=== PATIENT | female | born 1935 | race Caucasian/White ===

== ENCOUNTER 2016-11-21 12:13 | Inpatient (IN) | payer MEDICARE ==
[~2016-11-21] VITALS: Ht 149.9 cm; Wt 59.7 kg
[2016-11-21] MEDS ORDERED: MAGN400T5 PO (12:32)
[2016-11-21] MEDS ORDERED: NIFE60TA6 PO (12:32)
[2016-11-21] MEDS ORDERED: OCUVCAP2 PO (12:32)
[2016-11-21] MEDS ORDERED: CHLO125TA (12:32)
[2016-11-21] MEDS ORDERED: ASPI81TA85 PO (12:32)
[2016-11-21] MEDS ORDERED: PRESCAP6 PO (12:32)
[2016-11-21] MEDS ORDERED: LISI40TAB PO (12:32)
[2016-11-21] MEDS ORDERED: METO1TAB7 PO (12:32)
[2016-11-21] MEDS ORDERED: CALC1TAB21 PO (12:32)
[2016-11-21] MEDS ORDERED: NAPR250T4 PO (12:32)
[2016-11-21] MEDS ORDERED: PRAV10TA4 PO (12:32)
[2016-11-21] MEDS ORDERED: PIRO10CA2 PO (12:32)
[2016-11-21] MEDS ORDERED: VITA200016 PO (12:32)
[2016-11-21] MEDS ORDERED: NS 500 ML IV ONE (12:45)
[2016-11-21] MEDS ORDERED: ASPIRIN 81 MG CHEW TABLET PO ONE (12:45)
[2016-11-21 12:56] LABS: BASO # 0.1 K/mm3 (0.0-0.2); BASO % 0.4 % (0.0-1.0); EOS % 0.1 % (0.0-3.0); LARGE UNSTAINED CELL # 0.1 K/mm3 (0.0-0.4); LARGE UNSTAINED CELL % 0.5 % (0.0-4.0); LYMPH # 1.2 K/mm3 (1.5-4.5); LYMPH % 6.6 % (24.0-44.0); MEAN CORPUSCULAR HEMOGLOBIN 30.8 pg (27.0-33.0); MEAN CORPUSCULAR VOLUME 90.4 fl (80.0-96.0); MONO # 0.6 K/mm3 (0.0-0.8); MONO % 3.6 % (0.0-5.0); NEUTROPHILS # 15.4 K/mm3 (1.8-7.7); NEUTROPHILS % 88.9 % (36.0-66.0); PLATELET COUNT, AUTOMATED 302 k/mm3 (150-450); RED CELL DISTRIBUTION WIDTH 13.6 % (11.5-14.5); WHITE BLOOD COUNT 17.3 K/mm3 (4.0-10.0)
[2016-11-21 13:02] LABS: ALBUMIN 3.9 GM/DL (3.2-5.2); ALBUMIN/GLOBULIN RATIO 1.15 (1.00-1.93); ALKALINE PHOSPHATASE 53 U/L (45-117); ALT/SGPT 18 U/L (12-78); ANION GAP 14 MEQ/L (8-16); AST/SGOT 11 U/L (15-37); BILIRUBIN,DIRECT 0.2 MG/DL (0.0-0.2); BILIRUBIN,TOTAL 1.2 MG/DL (0.2-1.0); BLOOD UREA NITROGEN 15 MG/DL (7-18); CALCIUM LEVEL 8.9 MG/DL (8.8-10.2); CARBON DIOXIDE LEVEL 23 MEQ/L (21-32); CHLORIDE LEVEL 89 MEQ/L (98-107); CREATININE FOR GFR 1.12 MG/DL (0.55-1.02); GLOMERULAR FILTRATION RATE 49.8 (>32); GLUCOSE, FASTING 190 MG/DL (83-110); SODIUM LEVEL 126 MEQ/L (136-145); TOTAL PROTEIN 7.3 GM/DL (6.4-8.2)
[2016-11-21 13:19] LABS: POTASSIUM SERUM 2.8 MEQ/L (3.5-5.1)
[2016-11-21] MEDS ORDERED: POTASSIUM CHLORIDE 10 MEQ SR TABLET PO ONE ×2 (14:45→19:30)
--- NOTE | 2016-11-21 14:51 | REP ---
CHEST, TWO VIEWS: No comparison. There is no evidence of acute infiltrate. No pleural effusion is seen. The heart is normal in size. The mediastinal silhouette is unremarkable. The visualized osseous structures are intact. There is mild biapical pleural thickening. There is mild calcification of the thoracic aorta. IMPRESSION: No acute pulmonary disease. Signed by Darren Pfeiffer MD 11/21/2016 03:23 P
--- NOTE | 2016-11-21 14:59 | REP ---
RIGHT UPPER QUADRANT ULTRASOUND: Real-time sonographic evaluation of the right upper quadrant performed. There appears to be a 6 mm polyp in the gallbladder without evidence of gallstones, gallbladder wall thickening or pericholecystic fluid. There is no intrahepatic biliary dilatation. Common bile duct is prominent in diameter at 8 mm. Liver and pancreas demonstrate homogeneous echotexture with no gross mass, pancreas is not well seen due to overlying bowel gas. Right kidney demonstrates no hydronephrosis or nephrolithiasis with normal size at 12.2 cm in length. There is a cyst in the lower pole of the right kidney 1.9 x 1.7 x 2.6 cm. IMPRESSION: There appears to be a 6 mm polyp in the gallbladder without gallstones, gallbladder wall thickening or pericholecystic fluid. Slight dilatation common bile duct at 8 mm. Signed by Darren Pfeiffer MD 11/21/2016 03:24 P
[2016-11-21] MEDS ORDERED: GASTROGRAFIN SOLUTION 30ML (Q9963) As Ordered ONE (15:05)
[2016-11-21 15:12] LABS: BASO # 0.1 K/mm3 (0.0-0.2); BASO % 0.4 % (0.0-1.0); EOS # 0.1 K/mm3 (0.0-0.50); EOS % 0.4 % (0.0-3.0); LARGE UNSTAINED CELL # 0.2 K/mm3 (0.0-0.4); LYMPH # 2.1 K/mm3 (1.5-4.5); LYMPH % 10.7 % (24.0-44.0); MEAN CORPUSCULAR HGB CONC 34.7 g/dl (32.0-36.5); MEAN CORPUSCULAR VOLUME 89.4 fl (80.0-96.0); MONO % 5.5 % (0.0-5.0); NEUTROPHILS # 14.8 K/mm3 (1.8-7.7); PLATELET COUNT, AUTOMATED 264 k/mm3 (150-450); RED CELL DISTRIBUTION WIDTH 13.5 % (11.5-14.5)
[2016-11-21] MEDS ORDERED: GASTROGRAFIN SOLUTION 30ML (Q9963) PO ONE ×2 (15:30)
[2016-11-21] MEDS ORDERED: ISOVUE-370 76% 100ML VIAL (Q9967) As Ordered ONE (16:06)
[2016-11-21] MEDS ORDERED: CHLO25TA PO (18:07)
[2016-11-21] MEDS ORDERED: PRAV40TA2 PO (18:07)
[2016-11-21] MEDS ORDERED: ONDANSETRON 4MG/2ML VIAL (J2405) IV PRN (18:15)
[2016-11-21] MEDS ORDERED: ACETAMINOPHEN TAB 650MG DOSE (2X325MG) PO PRN (18:15)
[2016-11-21] MEDS ORDERED: cefTRIAXone SOD 2 GM in D5W MINI-BAG PLUS 50 ML IV ONE (18:15)
[2016-11-21] MEDS ORDERED: AZITHROMYCIN INJ 500 MG, VIAL MATE ADAPTER 1 EACH in D5W 250 ML IV ONE (18:15)
[2016-11-21] MEDS ORDERED: SODIUM CHLORIDE 0.9% 1000 ML IV SCH (18:30)
--- NOTE | 2016-11-21 20:09 | ECGEPIP ---
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
--- NOTE | 2016-11-21 20:11 | ECGEPIP ---
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
[2016-11-21 20:25] VITALS: BP 135/70
--- NOTE | 2016-11-21 20:32 | HPEPDOC ---
Medical History and Physical Date of Admission Nov 21, 2016 at 18:03 History and Physical ATTENDING: Woodrow Ochoa MD CHIEF COMPLAINT: [chills/fevers/joint pain ] HISTORY OF PRESENT ILLNESS: [81 yo F with hx of HTN, HLD, presents with fevers/ chills/joint pain since last night she states last night she started to have chills and sweats, along with nausea, no vomiting, she denies diarrhea, no constipation, no cough, she does report urinary frequency however no dysuria, no recent travel or sick contacts, no tick bites or bug bites, in the ED was noted to have elevated WBC 18, along with hypokalemia and hyponatremia. ] PAST MEDICAL HISTORY: HTN, HLD PAST SURGICAL HISTORY: denies SOCIAL HISTORY: denies x3 FAMILY HISTORY: unremarkable ALLERGIES: Please see below. REVIEW OF SYSTEMS: All 10 systems negative except for mentioned in HPI HOME MEDICATIONS: Please see below. PHYSICAL EXAMINATION: VITAL SIGNS: Vital Sign - Last 24 Hours 11/21/16 11/21/16 11/21/16 11/21/16 12:14 12:32 12:41 12:41 Temp 99.9 Pulse 128 Resp 19 B/P (MAP) 132/60 (84) 132/75 (94) 135/67 (89) Pulse Ox 98 O2 Delivery Room Air Room Air 11/21/16 11/21/16 11/21/16 11/21/16 12:41 12:43 12:56 12:58 Pulse 118 106 B/P (MAP) 125/71 (89) Pulse Ox 96 96 11/21/16 11/21/16 11/21/16 11/21/16 13:11 13:13 13:28 13:58 Pulse 110 104 104 B/P (MAP) 128/67 (87) Pulse Ox 96 97 11/21/16 11/21/16 11/21/16 11/21/16 14:13 14:28 14:43 14:58 Pulse 98 98 94 122 Pulse Ox 96 96 96 97 11/21/16 11/21/16 11/21/16 11/21/16 15:04 15:16 15:28 15:31 Temp 98.5 Pulse 100 B/P (MAP) 165/74 (104) 177/74 (108) Pulse Ox 95 7/2211/21/16 11/21/16 11/21/16 15:43 15:44 15:46 16:01 Pulse 92 92 92 B/P (MAP) 145/66 (92) 127/60 (82) Pulse Ox 97 96 96 11/21/16 11/21/16 11/21/16 11/21/16 16:16 16:31 16:46 17:01 Pulse 92 86 84 B/P (MAP) 124/59 (80) 121/58 (79) 118/55 (76) 113/55 (74) Pulse Ox 95 96 95 11/21/16 11/21/16 11/21/16 11/21/16 17:16 17:29 17:31 17:44 Pulse 88 B/P (MAP) 118/58 (78) 164/71 (102) 137/65 (89) Pulse Ox 95 95 11/21/16 11/21/16 11/21/16 11/21/16 17:46 18:14 18:16 18:29 Pulse 102 B/P (MAP) 122/58 (79) 131/64 (86) Pulse Ox 95 95 11/21/16 11/21/16 11/21/16 11/21/16 18:31 18:59 19:01 19:16 Temp 100.0 Pulse 88 88 86 B/P (MAP) 131/66 (87) Pulse Ox 95 96 11/21/16 11/21/16 11/21/16 11/21/16 19:29 19:31 19:44 19:46 Pulse 88 88 B/P (MAP) 119/64 (82) 130/75 (93) 11/21/16 20:04 Temp 98.7 Resp 18 B/P (MAP) 125/58 (80) Pulse Ox 97 GENERAL APPEARANCE: [NAD, ]. HEENT: [dry mucus membranes, PERRL]. CARDIOVASCULAR: [s1, s2 3/6 systolic murmur aortic region]. LUNGS: [CTA b/l ]. ABDOMEN: [s, nt, nd, +BS]. skin: no rashes EXTREMITIES: [no edema]. LABORATORY DATA: See below. IMAGING: [ There appears to be a 6 mm polyp in the gallbladder without gallstones, gallbladder wall thickening or pericholecystic fluid. Slight dilatation common bile duct at [address] CT a/p: 2 CYSTS IN THE PANCREAS PROB BENIGN, LARGER IS 1.3CM, REC FOLLOW UP MRI MICROBIOLOGY: Please see below. ASSESSMENT: [81 yo F with hx of HTN, HLD, presents with fevers/chills/joint pain since last night she states last night she started to have chills and sweats, along with nausea, no vomiting, she denies diarrhea, no constipation, no cough, she does report urinary frequency however no dysuria, no recent travel or sick contacts, no tick bites or bug bites, in the ED was noted to have elevated WBC 18, along with hypokalemia and hyponatremia.] 1. fevers/chill/severe sepsis unknown etiology CXR negative, RUQ sono negative, UA negative, possible viral infection will obtain viral panel, will start rocephin/zithromax empirically, echo r/o endocarditis given murmur on exam, follow ucx, blood cultures, bolus 1L NS, along with maintenance fluids, trend lactate. 2. hyponatremia/hypokalemia- likely multifactorial from diuretic along with poor intake, will hold chlorthalidone, replete, check lytes tonight 3. ventricular bigeminy- resolved likely due #2, continue tele monitoring. 4. HTN- resume home meds, holding lisinopril and diuretic 5. EDUARDO- due to dehydration will rehydrate, check am labs, holding nephrotoxic agents 6. hyperglycemia- likely reactive, follow am A1C DVT px. Vital Signs Vital Signs Date Time Temp Pulse Resp B/P (MAP) Pulse Ox O2 Delivery O2 Flow Rate FiO2 11/21/16 20:04 98.7 18 125/58 (80) 97 11/21/16 19:46 88 11/21/16 12:41 Room Air Laboratory Data Labs 24H Laboratory Tests 2 11/21/16 12:30: White Blood Count 17.3H, Red Blood Count 4.18, Hemoglobin 12.8, Hematocrit 37.7 , Mean Corpuscular Volume 90.4, Mean Corpuscular Hemoglobin 30.8, Mean Corpuscular Hemoglobin Concent 34.0, Red Cell Distribution Width 13.6, Platelet Count 302, Neutrophils (%) (Auto) 88.9H, Lymphocytes (%) (Auto) 6.6L, Monocytes (%) (Auto) 3.6, Eosinophils (%) (Auto) 0.1, Basophils (%) (Auto) 0.4, Neutrophils # (Auto) 15.4H, Lymphocytes # (Auto) 1.2L, Monocytes # (Auto) 0.6, Eosinophils # (Auto) 0.0, Basophils # (Auto) 0.1, Large Unclassified Cells % 0.5 , Large Unclassified Cells # 0.1, Anion Gap 14, Glomerular Filtration Rate 49.8 , Calcium Level 8.9, Aspartate Amino Transf (AST/SGOT) 11L, Alanine Aminotransferase (ALT/SGPT) 18, Alkaline Phosphatase 53, Total Bilirubin 1.2H, Direct Bilirubin 0.2, Total Creatine Kinase 32, Creatine Kinase MB 1.0, Creatine Kinase MB Relative Index 3.12, Troponin I < 0.02, Total Protein 7.3, Albumin 3.9, Albumin/Globulin Ratio 1.15, Lipase 221, Thyroid Stimulating Hormone (TSH) 0.373 11/21/16 13:44: Urine Appearance CLEAR, Urine Color YELLOW, Urine pH 5.0, Urine Specific [place] 1.008, Urine Protein NEGATIVE, Urine Glucose (UA) 1+H, Urine Ketones NEGATIVE, Urine Urobilinogen 0.2, Urine Bilirubin NEGATIVE, Urine Leukocyte Esterase NEGATIVE, Urine Blood 1+H, Urine Nitrite NEGATIVE, Urine WBC (Auto) 0, Urine RBC (Auto) 3, Urine Hyaline Casts (Auto) 0, Urine Bacteria (Auto) NEGATIVE , Urine Squamous Epithelial Cells 0, Urine Sperm (Auto) 11/21/16 15:03: White Blood Count 18.0H, Red Blood Count 3.78L, Hemoglobin 11.7L, Hematocrit 33.8L, Mean Corpuscular Volume 89.4, Mean Corpuscular Hemoglobin 31.0, Mean Corpuscular Hemoglobin Concent 34.7, Red Cell Distribution Width 13.5, Platelet Count 264, Neutrophils (%) (Auto) 82.0H, Lymphocytes (%) (Auto) 10.7L, Monocytes (%) (Auto) 5.5H, Eosinophils (%) (Auto) 0.4, Basophils (%) (Auto) 0.4 , Neutrophils # (Auto) 14.8H, Lymphocytes # (Auto) 2.1, Monocytes # (Auto) 1.0H , Eosinophils # (Auto) 0.1, Basophils # (Auto) 0.1, Large Unclassified Cells % 1.0, Large Unclassified Cells # 0.2, Total Creatine Kinase 33, Creatine Kinase MB 1.0, Creatine Kinase MB Relative Index 3.03, Troponin I < 0.02 11/21/16 19:14: Lactic Acid Level 3.0*H 11/21/16 19:22: Bedside Glucose ([facility]) 229H CBC/BMP Laboratory Tests 11/21/16 12:30 Red Blood Count 4.18, Mean Corpuscular Volume 90.4, Mean Corpuscular Hemoglobin 30.8, Mean Corpuscular Hemoglobin Concent 34.0, Red Cell Distribution Width 13.6 , Neutrophils (%) (Auto) 88.9 H, Lymphocytes (%) (Auto) 6.6 L, Monocytes (%) ( Auto) 3.6, Eosinophils (%) (Auto) 0.1, Basophils (%) (Auto) 0.4, Neutrophils # ( Auto) 15.4 H, Lymphocytes # (Auto) 1.2 L, Monocytes # (Auto) 0.6, Eosinophils # (Auto) 0.0, Basophils # (Auto) 0.1 11/21/16 15:03 Red Blood Count 3.78 L, Mean Corpuscular Volume 89.4, Mean Corpuscular Hemoglobin 31.0, Mean Corpuscular Hemoglobin Concent 34.7, Red Cell Distribution Width 13.5, Neutrophils (%) (Auto) 82.0 H, Lymphocytes (%) (Auto) 10.7 L, Monocytes (%) (Auto) 5.5 H, Eosinophils (%) (Auto) 0.4, Basophils (%) ( Auto) 0.4, Neutrophils # (Auto) 14.8 H, Lymphocytes # (Auto) 2.1, Monocytes # ( Auto) 1.0 H, Eosinophils # (Auto) 0.1, Basophils # (Auto) 0.1 Microbiology Microbiology 11/21/16 Blood Culture, Received Pending 11/21/16 Blood Culture, Received Pending 11/21/16 Respiratory Virus Panel (PCR) ([facility]) - Final, Complete Home Medications Scheduled (Preservision Areds 2) 1 Cap Cap, 1 CAP PO DAILY (Calcium 600 + D 600-200 mg-Unit) 1 Tab Tab, 1 TAB PO BID Aspirin (Aspir-81) 81 Mg Tab, 81 MG PO QHS Chlorthalidone (Chlorthalidone) 25 Mg Tab, 12.5 MG PO DAILY Lisinopril (Lisinopril) 40 Mg Tab, 40 MG PO DAILY Magnesium Oxide (Magnesium Oxide 400) 400 Mg Tab, 400 MG PO BID Metoprolol Succinate (Metoprolol Succinate ER) 50 Mg Tab, 50 MG PO DAILY Nifedipine (Nifedipine ER) 60 Mg Tab, 60 MG PO QHS Pravastatin Sod (Pravastatin Sodium) 40 Mg Tab, 40 MG PO QHS Vitamin D (Vitamin D) 2,000 Unit Cap, 2,000 UNIT PO QHS Scheduled PRN Naproxen (Naproxen) 250 Mg Tab, 250 MG PO for PAIN OR DYSPNEA Piroxicam (Piroxicam) 10 Mg Cap, 10 MG PO for PAIN OR DYSPNEA Allergies Coded Allergies: No Known Allergies (Unverified , 11/21/16) WOODROW OCHOA MD Nov 21, 2016 20:32
[2016-11-21] MEDS ORDERED: AZITHROMYCIN INJ 500 MG, VIAL MATE ADAPTER 1 EACH in D5W 250 ML IV SCH (21:00)
[2016-11-21] MEDS: ASPIRIN 81 MG ENTERIC TAB PO SCH (21:03)
[2016-11-21] MEDS: MAGNESIUM OXIDE 400 MG TAB (MAG-OX) PO SCH (21:03)
[2016-11-21] MEDS: PRAVASTATIN 20 MG TAB PO SCH (21:03)
[2016-11-21] MEDS: NS 1,000 ML IV SCH (21:06)
[2016-11-21] MEDS: NIFEdipine 60 MG XL TAB PO SCH (21:27)
[2016-11-21 22:39] LABS: ANION GAP 8 MEQ/L (8-16); BLOOD UREA NITROGEN 12 MG/DL (7-18); CALCIUM LEVEL 7.7 MG/DL (8.8-10.2); CARBON DIOXIDE LEVEL 24 MEQ/L (21-32); CHLORIDE LEVEL 95 MEQ/L (98-107); CREATININE FOR GFR 0.74 MG/DL (0.55-1.02); GLOMERULAR FILTRATION RATE > 60.0 (>32); GLUCOSE, FASTING 120 MG/DL (83-110); SODIUM LEVEL 127 MEQ/L (136-145)
[2016-11-21 23:47] VITALS: BP 128/60
[2016-11-22 03:30] VITALS: BP 126/60
[2016-11-22 06:37] LABS: ALBUMIN 2.9 GM/DL (3.2-5.2); ALBUMIN/GLOBULIN RATIO 0.94 (1.00-1.93); ALKALINE PHOSPHATASE 45 U/L (45-117); ALT/SGPT 17 U/L (12-78); ANION GAP 8 MEQ/L (8-16); AST/SGOT 15 U/L (15-37); BILIRUBIN,TOTAL 1.2 MG/DL (0.2-1.0); BLOOD UREA NITROGEN 9 MG/DL (7-18); CARBON DIOXIDE LEVEL 23 MEQ/L (21-32); CHLORIDE LEVEL 101 MEQ/L (98-107); CREATININE FOR GFR 0.65 MG/DL (0.55-1.02); GLOMERULAR FILTRATION RATE > 60.0 (>32); GLUCOSE, FASTING 103 MG/DL (83-110); POTASSIUM SERUM 4.2 MEQ/L (3.5-5.1); SODIUM LEVEL 132 MEQ/L (136-145)
[2016-11-22] MEDS: NS 1,000 ML IV SCH ×2 (06:48→14:58)
--- NOTE | 2016-11-22 07:42 | REP ---
CT ABDOMEN AND PELVIS WITH IV AND ORAL CONTRAST: TECHNIQUE: Axial contrast enhanced images from the lung bases to the pubic symphysis using 100 mL Isovue 370 intravenous contrast material with multiplanar reformations. The visualized lung bases demonstrate chronic interstitial fibrotic change. The liver appears unremarkable. The spleen, adrenals are unremarkable. The pancreas demonstrates a 1.3 cm cyst on the body of the pancreas and there also appears to be a 6 mm cyst in the pancreatic head in the region of the uncinate process. These are probably benign. Recommend followup MRI. Small renal cysts are seen without hydronephrosis. There are moderate atherosclerotic calcifications of the abdominal aorta without aneurysm. There is no adenopathy. There is no free air or free fluid. There is no bowel wall thickening. There is no pelvic mass. There is sigmoid diverticulosis without acute diverticulitis. Urinary bladder appears unremarkable. IMPRESSION: No acute abnormalities identified as discussed in detail above. Two small cysts are seen in the pancreas. Recommend followup MRI to further evaluate. Signed by Darren Pfeiffer MD 11/22/2016 07:24 P
[2016-11-22 08:00] VITALS: BP 130/62
[2016-11-22] MEDS: ENOXAPARIN 30 MG/0.3 ML SYR (J1650) SC SCH (08:46)
[2016-11-22] MEDS: METOPROLOL SUCC (TopROL XL) 50MG **XL** TAB PO SCH (08:47)
[2016-11-22] MEDS: MAGNESIUM OXIDE 400 MG TAB (MAG-OX) PO SCH ×2 (08:47→20:13)
[2016-11-22] MEDS: PANTOPRAZOLE 40MG TAB (PROTONIX) PO SCH (08:47)
[2016-11-22 10:07] LABS: BASO # 0.1 K/mm3 (0.0-0.2); BASO % 0.8 % (0.0-1.0); EOS # 0.1 K/mm3 (0.0-0.50); EOS % 1.1 % (0.0-3.0); LARGE UNSTAINED CELL # 0.2 K/mm3 (0.0-0.4); LARGE UNSTAINED CELL % 1.3 % (0.0-4.0); LYMPH # 1.5 K/mm3 (1.5-4.5); LYMPH % 12.1 % (24.0-44.0); MEAN CORPUSCULAR HEMOGLOBIN 30.5 pg (27.0-33.0); MEAN CORPUSCULAR HGB CONC 33.8 g/dl (32.0-36.5); MEAN CORPUSCULAR VOLUME 90.1 fl (80.0-96.0); MONO # 0.7 K/mm3 (0.0-0.8); MONO % 5.4 % (0.0-5.0); NEUTROPHILS # 9.7 K/mm3 (1.8-7.7); NEUTROPHILS % 79.2 % (36.0-66.0); PLATELET COUNT, AUTOMATED 278 k/mm3 (150-450); RED CELL DISTRIBUTION WIDTH 13.3 % (11.5-14.5); WHITE BLOOD COUNT 12.2 K/mm3 (4.0-10.0)
[2016-11-22 12:00] VITALS: BP 126/60
--- NOTE | 2016-11-22 12:17 | REP ---
CHEST, SINGLE VIEW: COMPARISON: 11/21/2016. There is no evidence of acute infiltrate. No pleural effusion is seen. The heart is normal in size. The mediastinal silhouette is unremarkable. The visualized osseous structures are intact. IMPRESSION: No acute pulmonary disease. Signed by Darren Pfeiffer MD 11/22/2016 07:28 P
[2016-11-22 16:00] VITALS: BP 129/60
[2016-11-22] MEDS ORDERED: cefTRIAXone SOD 1 GM in D5W MINI-BAG PLUS 50 ML IV SCH (18:00)
[2016-11-22] MEDS ORDERED: AZITHROMYCIN INJ 500 MG, VIAL MATE ADAPTER 1 EACH in D5W 250 ML IV SCH (20:00)
[2016-11-22] MEDS: ASPIRIN 81 MG ENTERIC TAB PO SCH (20:14)
[2016-11-22] MEDS: PRAVASTATIN 20 MG TAB PO SCH (20:14)
[2016-11-22] MEDS: NIFEdipine 60 MG XL TAB PO SCH (20:14)
[2016-11-22 20:19] VITALS: BP 134/68
--- NOTE | 2016-11-22 20:27 | IPN ---
DATE: 11/22/2016 SUBJECTIVE: The patient is seen and examined in the room today. The patient states she is feeling much better. Prior to admission, the patient did have fever on 11/20/2016. The patient had three bouts of diarrhea in 11/21/2016. I did have a chance to talk to the patient's neighbor who stated that patient has a habit of trying to minimize her symptoms. The patient's friend and the patient went to the [facility] previously, and the patient had been having multiple meals, including eating many food in the [facility], and the patient's neighbor also developed acute diarrhea. OBJECTIVE: VITAL SIGNS: Temperature is 99.2, pulse 80, respirations 18, blood pressure 130/62. Pulse oximetry is 96% on room air. GENERAL: No sign of acute distress. Alert and oriented times three. HEENT: Normocephalic, atraumatic. Extraocular motor grossly intact. CARDIOVASCULAR: Positive S1, S2. Regular rate. LUNGS: Clear to auscultation bilaterally. ABDOMEN: Soft, nondistended. Bowel sounds present. EXTREMITIES: No edema. No sign of cyanosis. LABORATORY DATA: WBC 12.2, hemoglobin 12.1, hematocrit 35.8, platelet count 278. Sodium 132, potassium 4.2, chloride 101, carbon dioxide 23, BUN 9, creatinine 0.65, GFR greater than 60, fasting glucose 103. Calcium is 8.0. Magnesium 2. Total bilirubin 1.2, AST 15, ALT 17, alkaline phosphatase 45. C-reactive 0.22, albumin 2.9. ASSESSMENT AND PLAN: 1. Fever with leukocytosis. We are still looking for possible source for infection. Blood culture is pending. Respiratory panel is negative. Due to concern for endocarditis, echocardiogram was performed. No official report at this moment. Based on the history, the patient may have gastroenteritis; however , the patient is not able to provide any sample for culture testing. The patient is started on empiric antibiotics Rocephin and azithromycin. The patient did have improvement of the white count. No recurrence of the diarrhea noted since admission. The patient is still having intermittent low-grade temperatures. 2. History of hypertension. 3. History of arthritis. 4. Hyperlipidemia. 5. Electrolyte abnormality. 6. Hyponatremia along with hypokalemia. Supplements given. Hypokalemia resolved. There is significant improvement of hyponatremia. The patient has been receiving intravenous (IV) fluid. 7. Osteoarthritis. 8. Bony abnormality of the finger, defect. 9. Questionable history of rheumatoid arthritis. During encounter, the patient states she has both osteoarthritis and rheumatoid arthritis, but her primary care provider has been giving her medication for rheumatoid arthritis. However, after reviewing the medication, only pain medication is given and when I talked to patient's neighbor who is a nurse, who stated the patient does not have rheumatoid arthritis. We will follow with primary care provider progress note tomorrow to verify the information. 10. Deep venous thrombosis (DVT) prophylaxis. The patient is on Lovenox. MTDD
[2016-11-22] MEDS ORDERED: SLF 3 ML SYR IV PRN (21:00)
[2016-11-22] MEDS: SLF 3 ML SYR IV SCH (21:26)
--- NOTE | 2016-11-22 23:53 | ECGEPIP ---
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 PATIENT WAS TACHYCARDIC AND THERE WAS BETTER R WAVE PROGRESSION Electronically Signed On 11-22-2016 23:52:58 EDT by Tano Ramirez
[2016-11-22 23:57] VITALS: BP 142/74
[2016-11-23 04:05] VITALS: BP 133/63
[2016-11-23] MEDS: SLF 3 ML SYR IV SCH (05:05)
[2016-11-23 06:03] LABS: BASO # 0.1 K/mm3 (0.0-0.2); BASO % 0.7 % (0.0-1.0); EOS # 0.2 K/mm3 (0.0-0.50); EOS % 1.9 % (0.0-3.0); LARGE UNSTAINED CELL # 0.1 K/mm3 (0.0-0.4); LARGE UNSTAINED CELL % 1.3 % (0.0-4.0); LYMPH # 1.8 K/mm3 (1.5-4.5); LYMPH % 18.8 % (24.0-44.0); MEAN CORPUSCULAR HEMOGLOBIN 31.3 pg (27.0-33.0); MEAN CORPUSCULAR HGB CONC 34.4 g/dl (32.0-36.5); MEAN CORPUSCULAR VOLUME 91.1 fl (80.0-96.0); MONO # 0.4 K/mm3 (0.0-0.8); MONO % 4.3 % (0.0-5.0); NEUTROPHILS # 6.4 K/mm3 (1.8-7.7); NEUTROPHILS % 72.9 % (36.0-66.0); PLATELET COUNT, AUTOMATED 272 k/mm3 (150-450); RED CELL DISTRIBUTION WIDTH 13.6 % (11.5-14.5); WHITE BLOOD COUNT 8.8 K/mm3 (4.0-10.0)
[2016-11-23 06:23] LABS: ALBUMIN/GLOBULIN RATIO 0.94 (1.00-1.93); ALKALINE PHOSPHATASE 45 U/L (45-117); ALT/SGPT 17 U/L (12-78); ANION GAP 8 MEQ/L (8-16); AST/SGOT 14 U/L (15-37); BILIRUBIN,TOTAL 0.7 MG/DL (0.2-1.0); BLOOD UREA NITROGEN 9 MG/DL (7-18); CALCIUM LEVEL 8.7 MG/DL (8.8-10.2); CARBON DIOXIDE LEVEL 26 MEQ/L (21-32); CHLORIDE LEVEL 102 MEQ/L (98-107); CREATININE FOR GFR 0.68 MG/DL (0.55-1.02); GLOMERULAR FILTRATION RATE > 60.0 (>32); GLUCOSE, FASTING 105 MG/DL (83-110); POTASSIUM SERUM 3.7 MEQ/L (3.5-5.1); SODIUM LEVEL 136 MEQ/L (136-145); TOTAL PROTEIN 6.2 GM/DL (6.4-8.2)
[2016-11-23 07:30] VITALS: BP 139/66
--- NOTE | 2016-11-23 07:35 | ECHO ---
DATE OF PROCEDURE: 11/22/2016 REFERRING PROVIDER: Dr. Shameka Hernandez PATIENT LOCATION: Room 3228 REASON FOR ECHOCARDIOGRAM: Fever. 2D MEASUREMENT: IVS - 1.1 cm LV - 4.0 cm LVPW - 1.0 cm LA - 3.4 cm Aorta - 2.8 cm IVC - 1.8 cm DOPPLER MEASUREMENT: Peak velocity across the aortic valve - 2.2 m/s Peak velocity across the LVOT - 1.6 m/s Mary Lou E - 0.9, Mary Lou A - 0.89 with a ratio of greater than 1.0 Maximum tricuspid valve velocity 2.4 m/s 2D COMMENTS: 1. Normal left ventricular size, wall thickness, and normal global left ventricular systolic function. Left ventricular systolic ejection fraction is estimated at 65-70%. 2. Normal left atrium. Normal right atrium and right ventricle. 3. The atrial septum appeared to be normal without evidence of defect or shunt. 4. Normal aortic root. 5. No pericardial effusion seen. 6. Mildly calcified aortic valve with normal leaflet excursion. Mildly calcified mitral annulus is normal. Anterior mitral valve leaflet motion appeared normal. Normal tricuspid valve and pulmonic valve. The proximal pulmonary artery branches were not well visualized. 7. The inferior vena cava was normal in size, central venous pressure is most likely normal. DOPPLER: It detects mild aortic regurgitation, mild tricuspid regurgitation, and trace pulmonic regurgitation. The calculated pulmonary artery systolic pressure varied between 30-40 mmHg. Abnormal relaxation pattern was noted across the mitral valve annulus consistent with a pseudo-normal pattern, left ventricular end diastolic pressure might be elevated. IMPRESSION: 1. Normal global left ventricular systolic function. There are some features of left ventricular diastolic dysfunction, grade 2. 2. Aortic valve sclerosis with mild aortic regurgitation and mild aortic stenosis. 3. Mitral annulus calcification, no significant mitral regurgitation detected. 4. Mild tricuspid regurgitation with mild pulmonary hypertension. MTDD
[2016-11-23] MEDS: ENOXAPARIN 30 MG/0.3 ML SYR (J1650) SC SCH (09:00)
[2016-11-23 09:32] VITALS: BP 144/70
[2016-11-23] MEDS: PANTOPRAZOLE 40MG TAB (PROTONIX) PO SCH (09:32)
[2016-11-23] MEDS: METOPROLOL SUCC (TopROL XL) 50MG **XL** TAB PO SCH (09:32)
[2016-11-23] MEDS: MAGNESIUM OXIDE 400 MG TAB (MAG-OX) PO SCH (09:32)
[2016-11-23] MEDS ORDERED: ZOFR20TA PO (11:45)
[2016-11-23] MEDS ORDERED: BACITAB PO (13:43)
[2016-11-23] MEDS ORDERED: AZIT500T2 PO (13:43)
--- NOTE | 2016-11-27 00:34 | DSES ---
DATE OF ADMISSION: 11/21/2016 DATE OF DISCHARGE: 11/23/2016 CONSULTANTS: None. PROCEDURES: None. COMPLICATIONS: MRI of the abdomen was ordered for the patient; however, patient received MRA of the neck. DISCHARGE DIAGNOSES: 1. Fever with leukocytosis. 2. History of hypertension. 3. History of arthritis. 4. Hyperlipidemia. 5. Electrolyte abnormalities, including hyponatremia and hypokalemia. 6. Chest pain after multiple sets of troponins and negative EKG. 7. Osteoarthritis. 8. Bony abnormality of the finger, defect. HOSPITALIZATION COURSE: Patient is an 81-year-old female, presented to [facility] on 11/21/2016 with fever, chills and arthralgia. Diagnostic workup has been ordered and showed patient had significant leukocytosis, and patient was started on empirical antibiotics. Patient was monitored on the telemetry. On the next day, after obtaining the information from the patient, patient's daughter, and patient's family friend, the patient was having significant fever with diarrhea prior to the hospitalization and gastrointestinal (GI) panel was ordered. However, due to inability of obtaining the samples, we were not able to obtain a GI panel to rule out bacterial versus viral gastritis. With medical management, patient showed clinical improvement and patient has been monitored on the telemetry. There have not been any events. Patient showed significant improvement from WBC and CRP. CT abdomen and pelvis was performed on the day of admission, which did not show any significant abnormalities. However, the patient was found to have pancreatic cysts and MRI was recommended. On 11/23/2016, an order was placed for patient to have abdominal MRI. Unfortunately, patient received MRA of neck. Prior to discharge, all the vital recordings, laboratory tests, microbiology, and all the imaging studies and the EKG were reviewed with the patient, patient's daughter, and patient's friend. Patient is recommended to followup with the primary care provider in 1 week. OBJECTIVE: Vital Signs: Temperature is 99.3, pulse is 97, respirations 20, blood pressure is 139/66, oxygen saturation is 97% in room air. LABORATORY DATA: At the time of discharge, WBC 8.8, hemoglobin 11.4, hematocrit 33, platelet count is 272. Sodium is 136, potassium 3.7, chloride is 102, carbon dioxide 26, BUN 9, creatinine 0.68, GFR greater than 60, fasting glucose 105, calcium is 8.7, magnesium 2, total bilirubin is 0.7, AST 14, ALT 17, alkaline phosphatase 45, C-reactive protein 9.53, total protein is 6.2, albumin is 3. Significant laboratory findings: Patient had a WBC of 17.3 at the time of admission. ESR was 32, C-reactive protein of 14. Microbiology: Blood culture from 11/21/2016 is negative after 5 days times two sets. Respiratory panel on 11/21/2016 is negative. GI panel: Unable to obtain due to lack of samples. IMAGING STUDIES: Chest x-ray on 11/21/2016 shows no acute pulmonary disease. Gallbladder ultrasound on 11/21/2016 showed 6 mm polyp in the gallbladder without gallstone, gallbladder wall thickening, or pericholecystic fluid. Slight dilatation of common bile duct at 8 mm. Chest x-ray on 11/21/2016 showed no acute pulmonary disease. CT of abdomen and pelvis with IV and oral contrast on 11/21/2016 showed no acute abnormalities. Two small cysts in the pancreas. Recommend followup MRI to further evaluate. CARDIAC STUDIES: EKG on 11/21/2016 at 1227 hours showed sinus tachycardia, premature ventricular contractions (PVCs). ST deviation and moderate T wave abnormalities. EKG on 11/21/2016 at 1455 hours showed sinus tachycardia. Nonspecific ST and T wave abnormalities. EKG on 11/22/2016 showed sinus rhythm. Possible anterior myocardial infarction (TN) of indeterminate age versus poor R wave progression. When compared to EKG on 11/21/2016, there was better R wave progression. Troponin from 11/21/2016 is less than 0.02. Troponin from 11/21/2016 from 1503 hours is less than 0.02. DISCHARGE MEDICATIONS: - azithromycin 500 mg by mouth daily for 3 days - Bacid one tablet by mouth with meals for 4 days - Zofran 4 mg by mouth every 8 hours as needed for nausea/vomiting - aspirin 81 mg by mouth nightly - calcium and vitamin D supplement one tablet by mouth twice a day - chlorthalidone 12.5 mg by mouth daily - lisinopril 40 mg by mouth daily - magnesium oxide 400 mg by mouth twice a day - metoprolol succinate 50 mg by mouth daily - naproxen 250 mg by mouth as needed - nifedipine 60 mg by mouth nightly - piroxicam 10 mg by mouth as needed - pravastatin 40 mg by mouth nightly - vitamin D 2000 units by mouth nightly DISCHARGE INSTRUCTIONS: Discontinue lines. Discharge home. Activity as tolerated. Diet as tolerated. Patient should followup with the primary care provider in 1 week. Patient is recommended outpatient MRI of the abdomen to followup with the pancreatic cysts. A GI panel was unable to be obtained at the time of admission due to lack of recurrence of diarrhea, and we were unable to delineate whether patient has a bacterial infection versus a viral infection. Patient is recommended to finish a 3-day course of empirical antibiotics. DISCHARGE CONDITION: Stable. DISCHARGE TIME: Greater than 30 minutes. MTDD
== END 2016-11-23 14:12 | disposition home or self-care (01) | DRG 864 ==
LOC: M ED 13:19 → M ED INP 18:03 → M PCU 20:15
PROVIDERS: ADMIT Internal Medicine; ATTEND Internal Medicine
DX: R50.9 Fever, unspecified (principal); E87.1 Hypo-osmolality and hyponatremia; E87.6 Hypokalemia; I10 Essential (primary) hypertension; R73.9 Hyperglycemia, unspecified; D72.829 Elevated white blood cell count, unspecified; E78.5 Hyperlipidemia, unspecified; E86.0 Dehydration; K52.9 Noninfective gastroenteritis and colitis, unspecified; R07.9 Chest pain, unspecified; M19.90 Unspecified osteoarthritis, unspecified site; Z79.82 Long term (current) use of aspirin; Z79.899 Other long term (current) drug therapy

== ENCOUNTER → 2016-11-25 | Outpatient (REF) | payer MEDICARE ==
[~2016-11-25] MED LIST: ASPI81TA85 PO; AZIT500T2 PO; BACITAB PO; CALC1TAB21 PO; CHLO125TA; CHLO25TA PO; LISI40TAB PO; MAGN400T5 PO; METO1TAB7 PO; NAPR250T4 PO; NIFE60TA6 PO; OCUVCAP2 PO; PIRO10CA2 PO; PRAV10TA4 PO; PRAV40TA2 PO; PRESCAP6 PO; VITA200016 PO; ZOFR20TA PO
== END ==
LOC: M LAB REF 16:32
PROVIDERS: ATTEND Internal Medicine
DX: A41.9 Sepsis, unspecified organism (principal)

== ENCOUNTER → 2018-03-08 | Outpatient (REF) | payer MEDICARE ==
[2018-03-13 15:38] LABS: METANEPHRINE PLASMA 97 pg/mL (0-62); NORMETANEPHRINE PLASMA 360 pg/mL (0-145)
== END ==
LOC: M LAB REF 12:16
DX: I10 Essential (primary) hypertension (principal)
CPT/HCPCS: 83835

== ENCOUNTER → 2018-03-15 | Outpatient (REF) | payer MEDICARE ==
[2018-03-20 00:06] LABS: METANEPHRINE PLASMA 65 pg/mL (0-62); NORMETANEPHRINE PLASMA 164 pg/mL (0-145)
[2018-03-22 14:14] LABS: ALDOSTERONE 3.1 ng/dL (0.0-30.0)
== END ==
LOC: M LAB REF 15:31
DX: I10 Essential (primary) hypertension (principal)
CPT/HCPCS: 84244

== ENCOUNTER → 2018-03-17 | Outpatient (REF) | payer MEDICARE ==
[2018-03-17 14:03] LABS: CREATININE, URINE 36.5 MG/DL
[2018-03-17 18:57] LABS: CREATININE 24 HOUR, URINE 565.7 MG/24HR (600-1800); TOTAL VOLUME, URINE 1550 ML
[2018-03-20 08:06] LABS: FREE CORTISOL 24HR URINE 29 ug/24 hr (0-50); FREE CORTISOL URINE 19 ug/L (Undefined)
[2018-03-23 00:39] LABS: METANEPHRINE TOTAL URINE 60 ug/L (Undefined); METANEPHRINE URINE 93 ug/24 hr (45-290); NORMETANEPHRINE TOTAL URINE 183 ug/L (Undefined); NORMETANEPHRINE URINE 284 ug/24 hr (82-500)
== END ==
LOC: M LAB REF 11:59
DX: I12.9 Hypertensive chronic kidney disease with stage 1 through stage 4 chronic kidney disease, or unspecified chronic kidney disease (principal)
CPT/HCPCS: 81050

== ENCOUNTER → 2018-12-14 | Outpatient (REF) | payer MEDICARE ==
[~2018-12-14] MED LIST changes: +LISI40TA PO; -LISI40TAB PO; -ZOFR20TA PO; +ZOFR4TAB16 PO
[2018-12-15 13:24] LABS: PERCENT SATURATION 27.2 % (13.2-45.0)
== END ==
LOC: M LAB REF 12:32
PROVIDERS: ATTEND Internal Medicine
DX: D64.9 Anemia, unspecified (principal)